=== PATIENT | female | born 1965 | race Caucasian/White ===

== ENCOUNTER 2024-01-04 14:22 | Emergency (ER) | payer BC, MEDICAID ==
[~2024-01-04] VITALS: Ht 172.7 cm; Wt 73.0 kg
[~2024-01-04 14:22] MED LIST: CYCL-524 PO
[2024-01-04 14:36] VITALS: BP 141/84; PULSE 103; TEMP 97.6; O2SAT 96
[2024-01-04 15:57] VITALS: RESP 16
== END 2024-01-04 15:58 | disposition home or self-care (01) ==
LOC: ER 14:23
DX: S93.402A Sprain of unspecified ligament of left ankle, initial encounter (principal); S96.812A Strain of other specified muscles and tendons at ankle and foot level, left foot, initial encounter; E11.9 Type 2 diabetes mellitus without complications; E07.9 Disorder of thyroid, unspecified; Z90.49 Acquired absence of other specified parts of digestive tract; Z90.710 Acquired absence of both cervix and uterus; Z88.2 Allergy status to sulfonamides; Z79.899 Other long term (current) drug therapy; X50.1XXA Overexertion from prolonged static or awkward postures, initial encounter; Y93.89 Activity, other specified; Y92.89 Other specified places as the place of occurrence of the external cause; Y99.8 Other external cause status
CPT/HCPCS: 29515; 73610; 99283; L1930